=== PATIENT | female | born 1950 | race Caucasian/White ===

== ENCOUNTER → 2017-01-05 | Outpatient (CLI) | payer BC | LOC: MC.RAD 10:03 | DX: Z12.31 Encounter for screening mammogram for malignant neoplasm of breast (principal) ==

== ENCOUNTER → 2018-01-12 | Outpatient (CLI) | payer BC | LOC: MC.RAD 07:31 | DX: Z12.31 Encounter for screening mammogram for malignant neoplasm of breast (principal) ==

== ENCOUNTER → 2019-01-13 | Outpatient (CLI) | payer BC, MEDICARE | LOC: MC.RAD 08:27 | DX: Z12.31 Encounter for screening mammogram for malignant neoplasm of breast (principal) ==

== ENCOUNTER → 2020-01-17 | Outpatient (CLI) | payer MEDICARE, BC | LOC: MC.RAD 08:19 | DX: Z12.31 Encounter for screening mammogram for malignant neoplasm of breast (principal) ==

== ENCOUNTER → 2021-02-06 | Outpatient (CLI) | payer MEDICARE, BC | LOC: MC.RAD 08:43 | DX: Z12.31 Encounter for screening mammogram for malignant neoplasm of breast (principal) ==

== ENCOUNTER → 2024-03-11 | Outpatient (CLI) | payer MEDICARE, BC | LOC: MC.RAD 08:31 | DX: Z12.31 Encounter for screening mammogram for malignant neoplasm of breast (principal); N63.10 Unspecified lump in the right breast, unspecified quadrant ==